=== PATIENT | female | born 1945 | race Caucasian/White ===

== ENCOUNTER 2016-05-19 08:47 | Day surgery (SDC) | payer OTHER ==
[2016-05-09 11:44] VITALS: BMI 25.8
[~2016-05-19 08:47] MED LIST: CEFAZOLIN 1 GM/D5W 50 ML IVPB ONE
[2016-05-19] MEDS ORDERED: LIDOCAINE HCL 2% (20ML MULTI-DOSE VIAL) NR ONE (10:11)
[2016-05-19] MEDS ORDERED: DEXAMETHASONE SOD PHOSPHATE 4 MG/1 ML VIAL ONE ×3 (10:11→11:45)
[2016-05-19] MEDS ORDERED: MIDAZOLAM HCL 2 MG/2 ML SINGLE DOSE VIAL ONE (10:49)
[2016-05-19] MEDS ORDERED: PROPOFOL 20 ML ONE ×2 (10:49)
[2016-05-19] MEDS ORDERED: ceFAZolin SODIUM 1 GM VIAL ONE (10:59)
[2016-05-19] MEDS ORDERED: LIDOCAINE HCL 2% (50ML VIAL) PNB ONE ×2 (11:00)
[2016-05-19] MEDS ORDERED: ONDANSETRON 4 MG/2 ML VIAL ONE (11:19)
[2016-05-19] MEDS ORDERED: KETOROLAC TROMETHAMINE 30 MG/1 ML VIAL ONE (11:19)
[2016-05-19] MEDS ORDERED: DEXAMETHASONE SOD PHOSPHATE 4 MG/1 ML VIAL NR ONE (11:56)
[2016-05-19 12:51] VITALS: TEMP 98.2
[2016-05-19 13:37] VITALS: BP 128/72; PULSE 58
--- NOTE | 2016-05-21 23:22 | OP ---
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 PROCEDURE: Alexander bunionectomy left foot. ANESTHESIA: Local with MAC (14.0 mL lidocaine 2% plain used). Hemostasis attained using a pneumatic ankle tourniquet left ankle at 250 mmHg. ESTIMATED BLOOD LOSS: Less than 0.5 mL total. SURGEON: Juliet Higgins M.D. ASSISTANTS: None. PROCEDURE: With patient's vital signs noted to be stable, she was brought to the OR and placed on the OR table in the supine position. Under general sedation, local anesthesia was administered and attained, and now orthopedic sterile prepping and draping of the left foot was performed. Now a well padded tourniquet at the left ankle was inflated. At this juncture, a dorsal linear incision of 3.5 cm in length was made centered over the 1st MPJ left foot. The incision was made also just medial to the extensor hallucis longus tendon. The incision was carefully deepened, and via sharp and blunt dissection the skin and subcutaneous tissues were reflected away from the underlying structures both medial and lateral to the incision line. At this point, a capsular incision was made. The capsular incision was T-shaped with the stem of the T being medial and at the 1st MPJ level. The capsular and periosteal tissues were sharply dissected away from the underlying bone and were reflected medially and laterally away from the 1st metatarsal head and the proximal phalanx of the left hallus. Now the medial collateral ligament of the 1st MPJ was transected. At this point, the medial eminence at the 1st metatarsal head was resected using a sagittal saw. Now any soft tissue attachments to the base of the proximal phalanx were released, and the capsular incision was continued at the base of the proximal phalanx down to the osseus level. At this juncture the proximal 1/3 of the proximal phalanx of the left hallux was resected using sagittal saw. Any rough edges of bone were rasped smooth, and the area was flushed with copious amounts of sterile saline. At this point, the capsular tissue was closed using simple interrupted sutures of 2-0 Vicryl. The subcutaneous tissues were closed using simple interrupted sutures of 4-0 Vicryl, and the skin was closed using a subcuticular stitch of 4-0 Prolene. A postoperative injection consisting of 2.0 mL of dexamethasone phosphate plus 2.0 mL of Marcaine 0.5% plain was placed. Sterile dressings were placed with compression. The tourniquet was deflated and normal capillary filling time returned, all digits left foot momentarily. Wound expectancy is good. It is clean. The prognosis is good. JULIET HIGGINS DPM [id number]
--- NOTE | 2016-05-23 13:33 | PATH ---
Surgical Pathology Report Patient Name: NIKOLAS DALLAS [facility]. Rec. #: [id number] /Age/Gender: 1945 (Age: 70) / F Account: [id number] Location: [facility] Taken: 05/22/2016 Received: 05/22/2016 Reported: 05/23/2016 Physicians: Jamie Patterson Specimen(s) Received BONE FIRST METATARSAL LEFT FOOT AND BONE BASE OF PROXIMAL PHALANX LEFT HALLUX Clinical History Bunion left foot Final Diagnosis BONE, LEFT FOOT, EXCISION: BONE WITH REACTIVE CHANGES, WITH ATTACHED ARTICULAR CARTILAGE. Electronically Signed Rafal Lomas M.D. Gross Description Received in formalin, labeled "bone first metatarsal left foot and bone base of proximal phalanx left hallux," are 2 mcguire, irregular portions of bone measuring 2.0 x 1.5 x 0.5 cm and 2.3 x 2.0 x 0.9 cm. [employer] sections are submitted in one cassette, following decalcification. 05/22/201605/22/2016
== END 2016-05-19 13:40 | disposition home or self-care (01) ==
LOC: FASU 08:47
PROVIDERS: ATTEND Podiatrist
PROC: 0QBP0ZZ Excision of Left Metatarsal, Open Approach (ICD-10-PCS; principal; 2016-05-19 10:30)
DX: M20.12 Hallux valgus (acquired), left foot (principal); M20.5X2 Other deformities of toe(s) (acquired), left foot
CPT/HCPCS: 88304-TC; 88311-TC